=== PATIENT | male | born 1980 | race Asian ===

== ENCOUNTER 2018-08-01 20:47 | Emergency (ER) | payer MEDICAID ==
[~2018-08-01] VITALS: Ht 188 cm; Wt 73.5 kg
[2018-08-01 21:31] VITALS: Ht 188 cm; Wt 73.5 kg
[2018-08-01 23:43] VITALS: BP 128/92
== END 2018-08-01 23:43 | disposition home or self-care (01) ==
LOC: ED 20:47
DX: H60.91 Unspecified otitis externa, right ear (principal); G89.29 Other chronic pain